=== PATIENT | male | born 1985 | race American Indian/Alaskan Native ===

== ENCOUNTER 2016-09-04 17:06 | Emergency (ER) | payer MEDICAID ==
[2016-09-04 17:49] VITALS: BP 154/75; PULSE 76; RESP 18; TEMP 98.5; O2SAT 99
--- NOTE | 2016-09-04 18:59 | ED PDOC ---
HPI: Male Pain Time Seen by Provider: 09/04/16 18:45 Chief Complaint (Nursing): Male Genitourinary Chief Complaint (Provider): Right Testicular Pain History Per: Patient History/Exam Limitations: no limitations Onset/Duration Of Symptoms: Days (x4) Current Symptoms Are (Timing): Still Present Severity: Severe ("excruciating") Quality Of Discomfort: Unable To Describe Associated Symptoms: denies: Vomiting Additional Complaint(s): Avery Forrest is a 31 year old male, with no pertinent past medical history, who presents to the ED on 09/04/16 for the evaluation of right-sided testicular pain that he has experienced x4 days, 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 Pain had reportedly become excruciating today, preventing him from going to work and prompting his visit to the ED. Denies vomiting and states that his bowel movements have been normal. PMD: Yoli Velasquez Past Medical History Reviewed: Historical Data, Nursing Documentation, Vital Signs Vital Signs: Last Vital Signs Temp 98.5 F 09/04/16 17:45 Pulse 76 09/04/16 17:45 Resp 18 09/04/16 17:45 BP 154/75 H 09/04/16 17:45 Pulse Ox 99 09/04/16 17:45 - Medical History PMH: No Chronic Diseases - Surgical History Surgical History: No Surg Hx - Family History Family History: States: Unknown Family Hx - Social History Current smoker - smoking cessation education provided: Yes (Heavy) Alcohol: Social Drugs: Denies - Home Medications Home Medications: Ambulatory Orders Medication Instructions Recorded Ibuprofen [Motrin] 600 mg PO Q6H PRN #20 tab 09/04/16 - Allergies Allergies/Adverse Reactions: Allergies Allergy/AdvReac Type Severity Reaction Status Date / Time No Known Allergies Allergy Verified 09/04/16 17:45 Review of Systems Gastrointestinal: Negative for: Vomiting Genitourinary Male: Positive for: Other (Right Testicular Pain) Physical Exam - Reviewed Nursing Documentation Reviewed: Yes Vital Signs Reviewed: Yes - Physical Exam Appears: Positive for: Non-toxic, No Acute Distress Gastrointestinal/Abdominal: Positive for: Normal Exam, Soft. 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 Negative for: lesions, testicular tenderness (L), urethral discharge Back: Positive for: Normal Inspection Neurologic/Psych: Positive for: Alert, Oriented - ECG O2 Sat by Pulse Oximetry: 99 (ra) Pulse Ox Interpretation: Normal Medical Decision Making Medical Decision Makin:45 initial impression: testicular pain initial plan: * Testicular US * U dip * Urinalysis * re-eval Specific discharge instructions on testicular microlithiasis discussed with patient. Discussed with patient importance of close follow-up with Urologist without fail. States he has a PMD and will also follow-up with him/her. Scribe Attestation: Documented by Jessi Salmeron, acting as a scribe for Kathrin Humphrey MD. Provider Scribe Attestation: All medical record entries made by the Scribe were at my direction and personally dictated by me. I have reviewed the chart and agree that the record accurately reflects my personal performance of the history, physical exam, medical decision making, and the department course for this patient. I have also personally directed, reviewed, and agree with the discharge instructions and disposition. Disposition - Clinical Impression Clinical Impression: Testicular microlithiasis - Disposition Referrals: Denton Garzon MD [Staff Provider] - Disposition: Routine/Home Disposition Time: 21:47 Condition: STABLE Prescriptions: Ibuprofen [Motrin] 600 mg PO Q6H PRN #20 tab PRN Reason: Pain, Moderate (4-7) Instructions: Testicular Self-examination (ED), Testicle Pain (ED) Forms: [facility] ED School/Work Excuse
[2016-09-04 19:50] LABS: RBC URINE < 1 /hpf (0-3); URINE BACTERIA RARE (<OCC); URINE BILIRUBIN NEGATIVE (NEGATIVE); URINE BLOOD NEGATIVE (NEGATIVE); URINE COLOR YELLOW (YELLOW); URINE GLUCOSE (UA) NEG (Normal); URINE KETONE NEGATIVE (NEGATIVE); URINE LEUKOCYTE ESTERASE NEG Leu/uL (Negative); URINE PROTEIN NEGATIVE (NEGATIVE); URINE UROBILINOGEN 0.2-1.0 mg/dL (0.2-1.0); WBC URINE 1 /hpf (0-5)
--- NOTE | 2016-09-05 10:39 | US ---
HISTORY: R testicular pain TECHNIQUE: Realtime sonography through the scrotum with color and doppler flow. COMPARISON: None Available. FINDINGS: RIGHT TESTICLE: Measures 4.6 x 2.2 x 3.6 cm. Testicular microlithiasis. 2 mm intratesticular cyst lower pole. RIGHT EPIDIDYMIS: Epididymal head measures 1.2 x 0.8 is cm. Grossly unremarkable appearance with normal flow. LEFT TESTICLE: Measures 4.5 x 2.1 x 3.9 cm. Testicular microlithiasis. 2 x 2 mm cyst mid upper pole region. LEFT EPIDIDYMIS: Epididymal head measures 1 x 0.8 cm. Epididymal cyst 3 x 4 mm. HYDROCELE: None. VARICOCELE: None. OTHER FINDINGS: None. IMPRESSION: Negative study for epididymitis, orchitis or torsion. Testicular microlithiasis. No evidence of testicular mass.
== END 2016-09-04 21:48 | disposition home or self-care (01) ==
LOC: H.ER 17:06
DX: N50.89 Other specified disorders of the male genital organs (principal); F17.200 Nicotine dependence, unspecified, uncomplicated